=== PATIENT | female | born 1955 | race Caucasian/White ===

== ENCOUNTER 2016-12-04 08:29 | Emergency (ER) | payer OTHER ==
--- NOTE | ~2016-12-04 | US84 ---
[id number] [facility], [place]. [facility] [address] [place], [place] [address] [id number] MR#: [id number] Acc #: [id number] NAME: JENNIFER MOYER : 1955 SEX: F STUDY DATE/TIME: 12/04/2016 9:29 UNIT: SARAH ROOM: STUDY DESCRIPTION: US LE Veins Complete Lito Stdy Attending Physician: Parish Coronado D.O. Ordering Physician: Parish Coronado D.O. Primary Care Physician: You Kay M.D. MEDICAL IMAGING REPORT This report is preliminary unless electronic signature is present EXAM Bilateral lower extremity venous Doppler, 12/04/2016. HISTORY 1-day history of right leg pain. FINDINGS TECHNIQUE Venous ultrasound examination of both lower extremities was performed using grayscale, spectral Doppler and color flow Doppler imaging. FINDINGS The examination is negative. There is no evidence of deep venous thrombus from the groin to the lower calf bilaterally. Visualized greater saphenous veins are also patent. IMPRESSION Negative examination. No evidence of lower extremity deep venous thrombosis. Dictated by... Chris He M.D. THIS IS AN ELECTRONICALLY VERIFIED REPORT Chris He M.D. at 12/05/2016 10:25 AM SAVANNAH/sherry TD: 12/04/2016 16:11 JOB #: [id number] MEDICAL IMAGING REPORT Page 1 of 1 COPY
--- NOTE | ~2016-12-04 | CT4 ---
[facility] A Service of [facility] RADIOLOGY TEXT RESULTS PATIENT: JENNIFER MOYER LOCATION: [facility] : 57 UNIT #: [id number] AGE: [address]: Parish Coronado DO SEX: F ORDER DR: [id number] [facility] [address] [place], [place] [address] [id number] E MR#: [id number] Acc #: [id number] NAME: JENNIFER MOYER : 1955 SEX: F STUDY DATE/TIME: 12/04/2016 9:55 UNIT: SARAH ROOM: STUDY DESCRIPTION: CT Abd and Pelv Wo Cont Attending Physician: Parish Coronado D.O. Ordering Physician: Parish Coronado D.O. Primary Care Physician: You Kay M.D. MEDICAL IMAGING REPORT This report is preliminary unless electronic signature is present EXAM CT abdomen and pelvis without contrast. INDICATION Bilateral flank pain and increased urination over the past 5-[address] of the abdomen and pelvis. This CT exam was performed with one or more of the following radiation dose reduction techniques: automatic exposure control, adjustment of mA and/or kV according to patient size, and iterative reconstruction. COMPARISON None FINDINGS ABDOMEN WITHOUT CONTRAST: Included lung bases clear. Liver enlarged measuring 21.2 cm. Spleen, kidneys, adrenal glands, pancreas have an unremarkable unenhanced appearance. Previous cholecystectomy. The bowel loops are nondilated. There is moderate colonic stool burden. No radiodense urinary system calculus or hydronephrosis. 5.9 cm fat-containing umbilical hernia. PELVIS WITHOUT CONTRAST: No radiodense bladder calculus. Previous hysterectomy. No aggressive appearing bone lesion. Bilateral L5 pars defects. 10 mm anterolisthesis of L5 on S1. [facility] A Service of [facility] RADIOLOGY TEXT RESULTS PATIENT: JENNIFER MOYER LOCATION: [facility] : 57 UNIT #: [id number] AGE: [address]: Hottman,Praish M DO SEX: F ORDER DR: IMPRESSION 1. No acute findings. No radiodense urinary system calculus or hydronephrosis. 2. Hepatomegaly. 3. Fat-containing umbilical hernia. 4. L5 pars defects with 10 mm of anterolisthesis of L5 on S1. Dictated by... Robert Jiménez M.D. THIS IS AN ELECTRONICALLY VERIFIED REPORT Robert Jiménez M.D. at 12/05/2016 7:12 AM BRUNA/carely TD: 12/04/2016 16:15 JOB #: [id number] MEDICAL IMAGING REPORT Page 1 of 1 COPY
[~2016-12-04 08:29] MED LIST: ALBUTEROL17 GM INH; ASPIRIN PO; ATIVAN PO; ATIVAN0.5 M1 PO; AVAPRO PO; BACLOFEN10 MG PO; BACTRIM DS TABL1 TA1 PO; DYAZIDE 37.5/251 CAP PO; FAMOTIDINE PO; GLUCOPHAGE XR500 MG PO; GLUCOPHAGE500 M1 PO; KEFLEX500 M1 PO; LANTUS100 U/ML SUBQ; NASAL SPRAY; NORFLEX100 M1 PO; PAXIL PO; PERCOCET5/325 PO; PRILOSEC20 MG PO; PRINIVIL40 MG PO; ZYRTEC10 M2 PO
[2016-12-04 09:20] LABS: URINE SOURCE CLEAN CATCH
[2016-12-04 09:26] LABS: URINE APPEARANCE CLEAR; URINE BILIRUBIN NEG (NEG); URINE BLOOD NEG (NEG); URINE COLOR YELLOW; URINE GLUCOSE NEG (NEG); URINE KETONE NEG (NEG); URINE LEUKOCYTE ESTERASE NEG (NEG); URINE NITRATE NEG (NEG); URINE PROTEIN NEG (NEG); URINE SPECIFIC GRAVITY 1.009 (1.003-1.035); URINE UROBILINOGEN 0.2 MG/DL (NEG)
[2016-12-04 09:28] LABS: BASOPHIL# 0.1 X10e3 (0-0.3); BASOPHIL% 0.7 % (0-2.5); EOSINOPHIL# 0.2 X10e3 (0-0.7); EOSINOPHIL% 1.7 % (0.0-7.0); HEMATOCRIT 38.9 % (35.0-45.0); HEMOGLOBIN 12.8 gm/dL (12.0-16.0); LYMPHOCYTE# 1.4 X10e3 (1.0-3.5); LYMPHOCYTE% 15.2 % (17.0-45.0); MEAN CELL VOLUME 77.9 FL (83-96); MEAN CORPUSCULAR HEMOGLOBIN 25.7 PG (28-34); MEAN CORPUSCULAR HGB CONC 32.9 g/dL (30-36); MEAN PLATELET VOLUME 8.5 FL (6.5-11.5); MONOCYTE# 0.5 X10e3 (0-1.0); MONOCYTE% 5.3 % (3.0-12.0); NEUTROPHIL# 7.3 X10e3 (1.5-7.1); NEUTROPHIL% 77.1 % (40-75); PLATELET COUNT 255 X10e3 (140-420); RED CELL DISTRIBUTION WIDTH 14.8 % (11.0-15.5); WHITE BLOOD COUNT 9.4 X10e3 (4.0-10.5)
[2016-12-04 09:29] LABS: DIFF IND NO
[2016-12-04 09:33] LABS: CULTURE INDICATED? NO
[2016-12-04 09:37] LABS: PARTIAL THROMBOPLASTIN TIME 24.2 SECONDS (23.5-31.3); PROTHROMBIN TIME (PATIENT) 10.7 SECONDS (10.0-11.7)
[2016-12-04 09:40] LABS: POC - CKMB 2.2 ng/mL (0.0-7.9); POC - TROPONIN <0.05 ng/mL (<=0.05)
[2016-12-04 09:49] LABS: ALBUMIN SERUM 4.1 g/dL (3.5-5.0); BILIRUBIN, DIRECT 0.1 mg/dL (0.0-0.2); BILIRUBIN,INDIRECT 0.6 mg/dL (0.0-0.9); BILIRUBIN,TOTAL 0.7 mg/dL (0.2-2.0); BUN/CREATININE RATIO 13.75; CALCIUM SERUM 9.3 mg/dL (8.4-10.2); CREATININE SERUM 0.8 mg/dL (0.6-1.4); GLOM FILT RATE Estimated 80.8 mL/min (>60); POTASSIUM 3.8 mmol/L (3.5-5.1); PROTEIN TOTAL SERUM 7.9 g/dL (6.0-8.3)
== END 2016-12-04 12:38 | disposition home or self-care (01) ==
LOC: CED 08:29
PROVIDERS: Emergency Medicine
DX: R60.0 Localized edema (principal); M54.9 Dorsalgia, unspecified; E11.9 Type 2 diabetes mellitus without complications; F32.9 Major depressive disorder, single episode, unspecified; I10 Essential (primary) hypertension; J45.909 Unspecified asthma, uncomplicated; K21.9 Gastro-esophageal reflux disease without esophagitis; Z98.890 Other specified postprocedural states; Z90.710 Acquired absence of both cervix and uterus; Z91.041 Radiographic dye allergy status; Z88.0 Allergy status to penicillin; Z88.1 Allergy status to other antibiotic agents; Z88.8 Allergy status to other drugs, medicaments and biological substances; Z79.4 Long term (current) use of insulin; Z79.899 Other long term (current) drug therapy
CPT/HCPCS: 36415; 74176; 80048; 80076; 81003; 82553; 82947; 83880; 84484; 85025; 85610; 85730; 93970; 99284